=== PATIENT | male | born 1960 | race Caucasian/White ===

== ENCOUNTER 2019-03-06 14:01 | Emergency (ER) | payer OTHER ==
--- NOTE | 2019-03-06 14:35 | ED ---
Shortness of Breath - HPI Summary HPI Summary: This pt is a 58 y/o male presenting to [facility] c/o SOB for the past 3 days. Pt reports he was started on suboxone for opioids 3 days ago. He describes SOB on exertion but denies SOB at rest. Denies cough, cold symptoms, chest pain, fever , chills, sore throat, abd pain, nausea, vomiting. He does report headache, diarrhea. He used an inhaler given to him along with the suboxone without relief. Denies hx of asthma or COPD. He is a current smoker. Pt states he had a stress test done about 3 months ago and was noted to have decreased pulses on his right leg. He was supposed to follow up with a vascular surgeon for arterial stenosis but has not been able to yet. Pt states he has leg cramps described as a burning sensation in his thighs, even when he is at rest. - History of Current Complaint Chief Complaint: EDShortnessOfBreath Time Seen by Provider: 03/06/19 14:25 Hx Obtained From: Patient Onset/Duration: Lasting Days - 3, Still Present Timing: Constant Current Severity: None Dyspnea At: Exertion Aggravating Factors: Movement Alleviating Factors: Nothing Associated Signs & Symptoms: Negative - Allergy/Home Medications Allergies/Adverse Reactions: Allergies Allergy/AdvReac Type Severity Reaction Status Date / Time MS Aspirin Allergy Anaphylatic Verified 08/29/12 20:35 [From Talwin Compound] Shock MS Morphine [Morphine] Allergy Hives Verified 08/29/12 19:01 MS Pentazocine Allergy Anaphylatic Verified 08/29/12 20:35 [From Talwin Compound] Shock Home Medications: Home Medications Albuterol HFA INHALER* [Ventolin HFA Inhaler*] 1 puff INH Q6H PRN 03/06/19 [ History Confirmed 03/06/19] Amitriptyline TAB* [Elavil TAB*] 25 mg PO BEDTIME 03/06/19 [History Confirmed ] Aspirin EC TAB* [Ecotrin EC Low Dose 81 MG*] 81 mg PO DAILY 03/06/19 [History Confirmed 03/06/19] Atorvastatin* [Lipitor*] 80 mg PO DAILY 03/06/19 [History Confirmed 03/06/19] Cilostazol TAB* [Pletal TAB*] 100 mg PO BID 03/06/19 [History Confirmed 03/06/19 ] Metoprolol Tartrate TAB* [Lopressor TAB*] 25 mg PO DAILY 03/06/19 [History Confirmed 03/06/19] Oxycodone TAB(NF) [Oxycodone HCl 10 MG] 15 mg PO Q6H PRN 03/06/19 [History Confirmed 03/06/19] Tamsulosin CAP* [Flomax CAP*] 0.4 mg PO DAILY 03/06/19 [History Confirmed ] PMH/Surg Hx/FS Hx/Imm Hx Endocrine/Hematology History: Denies: Hx Anticoagulant Therapy, Hx Diabetes, Hx Thyroid Disease Cardiovascular History: Reports: Hx Hypertension Denies: Hx Pacemaker/ICD Respiratory History: Denies: Hx Asthma, Hx Chronic Obstructive Pulmonary Disease (COPD) History: Denies: Hx Renal Disease Neurological History: Denies: Hx Dementia, Hx Seizures Psychiatric History: Denies: Hx Substance Abuse Infectious Disease History: No Infectious Disease History: Denies: Hx Hepatitis, Hx Human Immunodeficiency Virus (HIV), Traveled Outside the [place] in Last 30 Days - Family History Known Family History: Positive: Cardiac Disease - father - Social History Alcohol Use: None Substance Use Type: Reports: None Hx Tobacco Use: Yes Smoking Status (MU): Former Smoker Review of Systems Negative: Fever, Chills Negative: Sore Throat Negative: Chest Pain Positive: Shortness Of Breath. Negative: Cough Positive: Diarrhea. Negative: Abdominal Pain, Vomiting, Nausea Positive: Headache All Other Systems Reviewed And Are Negative: Yes Physical Exam - Summary Physical Exam Summary: Appearance: Very slender older man, appears older than stated age, lying in the stretcher in no acute distress. Vital signs noted for somewhat low blood pressure. Skin: Warm, dry, no obvious rash Eyes: sclera anicteric, no conjunctival pallor ENT: mucous membranes moist, pharynx appears normal Neck: Supple, nontender Respiratory: Breath sounds slightly diminished on the right compared to the left. No abnormalities to percussion to suggest pleural effusions on either side. No signs of consolidation. No wheezing. Cardiovascular: Normal S1, S2. No murmurs. Normal distal pulses in tibial and radial bilaterally. Abdomen: Soft, nontender, normal active bowel sounds present Musculoskeletal: Normal, Strength/ROM Intact Neurological: A&Ox3, awake and alert, mentation is normal, speech is fluent and appropriate Psychiatric: affect is normal, does not appear anxious or depressed Triage Information Reviewed: Yes Vital Signs On Initial Exam: Initial Vitals Temp Pulse Resp BP Pulse Ox 98.1 F 87 18 85/62 98 03/06/19 14:02 03/06/19 14:02 03/06/19 14:02 03/06/19 14:02 03/06/19 14:02 Vital Signs Reviewed: Yes Diagnostics - Vital Signs Vital Signs Temp Pulse Resp BP Pulse Ox 03/06/19 14:20 93 12 95/59 98 03/06/19 14:02 98.1 F 87 18 85/62 98 - Laboratory Result Diagrams: 03/06/19 14:40 03/06/19 13:36 Lab Statement: Any lab studies that have been ordered have been reviewed, and results considered in the medical decision making process. - Radiology Chest XR Radiology Interpretation Completed By: Radiologist Summary of Radiographic Findings: IMPRESSION: Hyperinflated lung moran without definite pneumonia. Dr. Urena has reviewed this report. - CT Chest CTA CT Interpretation Completed By: Radiologist Summary of CT Findings: IMPRESION: #. No evidence for pulmonary embolism. #. Moderately severe emphysema. #. Negative for suspicious focal pulmonary lesions or evidence of pneumonia. Dr. Urena has reviewed this report. - EKG 14:40 Cardiac Rate: NL - at 80 bpm EKG Rhythm: Sinus Rhythm Summary of EKG Findings: Atrial premature complex. Re-Evaluation - Re-Evaluation First Eval Re-Evaluation Time: 17:15 Change: Improved Comment: Per nurse's note, pt was ambulated around unit four times with pulse oximetry. Pt's saturation maintained above 97% throughout ambulation test. Course/Dx - Course Assessment/Plan: Pt is a 58 y/o male presenting to [facility] c/o SOB for the past 3 days. Pt reports he was started on suboxone for opioids 3 days ago. He describes SOB on exertion but denies SOB at rest. Test results remarkable for WC of 3.2, platelet count of 118, D-dimer of 337, glucose of 147. Chest XR shows hyperinflated lung moran without definite pneumonia. EKG is normal sinus rhythm at 80 bpm. Chest CTA shows #. No evidence for pulmonary embolism. #. Moderately severe emphysema. #. Negative for suspicious focal pulmonary lesions or evidence of pneumonia. Pt was ambulated in the ED and maintained saturation above 97% per nurse. Pt will be discharged home with follow up from his PCP no later than next week. He was instructed to return to the ED for any worsening or new symptoms. - Diagnoses Provider Diagnoses: Dyspnea Discharge - Sign-Out/Discharge Documenting (check all that apply): Patient Departure - Discharge home Patient Received Moderate/Deep Sedation with Procedure: No - Discharge Plan Condition: Good Disposition: HOME Patient Education Materials: Dyspnea (ED) Referrals: Nicolle Mayen MD [Primary Care Provider] - As Soon As Possible Additional Instructions: We did not find any worrisome abnormalities on the tests we ran today, but by the same token we did not make a diagnosis. You seem to be doing somewhat better and with a normal workup I am comfortable letting you go home today, but please contact your PCP for a followup no later than next week. Also be aware of your symptoms, if things are changing that can give us a clue about what might be going on. If that happens, we should see you back sooner. - Attestation Statements Document Initiated by Scribe: Yes Documenting Scribe: Salina Puckett Provider For Whom Shannon is Documenting (Include Credential): Darrion Urena MD Scribe Attestation: I, Salina Puckett, scribed for Darrion Urena MD on 03/06/19 at 1846. Status of Scribe Document: Ready
[2019-03-06 14:59] LABS: ABS Eosinophils 0.1 10^3/ul (0-0.6); ABS Lymphocytes 1.6 10^3/ul (1.0-4.8); ABS Monocytes 0.3 10^3/ul (0-0.8); ABS Neutrophils 1.3 10^3/ul (1.5-7.7); Eosinophil % 1.8 %; Hematocrit 42 % (42-52); Hemoglobin 14.9 g/dL (14.0-18.0); Lymphocyte % 49.8 %; Mean Corpuscular HGB Conc 35 g/dL (31-36); Mean Corpuscular Hemoglobin 31 pg (27-31); Mean Corpuscular Volume 89 fL (80-94); Mean Platelet Volume 7.8 fL (7.4-10.4); Platelet Count 118 10^3/uL (150-450); Red Blood Count 4.78 10^6 /uL (4.18-5.48); Red Cell Distribution Width 14 % (10-15); White Blood Count 3.2 10^3/uL (3.5-10.8)
[2019-03-06] MEDS: NS 0.9% 1000 ML** 2,000 ML IV ONE ×2 (15:05→15:06)
[2019-03-06 15:28] LABS: Albumin 4.1 g/dL (3.2-5.2); Albumin/Globulin Ratio 1.2 (1-3); BUN/Creatinine Ratio 16.1 (8-20); Calcium 9.1 mg/dL (8.6-10.3); EGFR African American 80.9 (>60); EGFR Non-African American 66.9 (>60); Globulin 3.5 g/dL (2-4); Potassium 4.1 mmol/L (3.5-5.0); Total Bilirubin 0.7 mg/dL (0.2-1.0); Total Protein 7.6 g/dL (6.4-8.9)
[2019-03-06] MEDS ORDERED: Iohexol 350* (CONTRAST) 500 ML MDV IV ONE (16:58)
[2019-03-06 19:02] VITALS: BP 144/83
== END 2019-03-06 19:02 | disposition home or self-care (01) ==
LOC: ED 14:01
DX: R06.00 Dyspnea, unspecified (principal); I10 Essential (primary) hypertension; Z88.5 Allergy status to narcotic agent; Z88.0 Allergy status to penicillin; Z88.8 Allergy status to other drugs, medicaments and biological substances; Z79.82 Long term (current) use of aspirin; Z79.899 Other long term (current) drug therapy; Z79.891 Long term (current) use of opiate analgesic; Z87.891 Personal history of nicotine dependence; J43.9 Emphysema, unspecified
CPT/HCPCS: 36415; 71046; 71275; 80053; 83880; 84484; 85025; 85379; 93005; 96360; 96361; 99284; Q9967